=== PATIENT | male | born 1950 | race Caucasian/White ===

== ENCOUNTER → 2017-03-01 | Outpatient (CLI) | payer OTHER ==
[2017-03-01 07:49] LABS: ALT 34 U/L (21-72); AST 18 U/L (17-59); Alkaline Phosphatase 44 U/L (38-126); Anion Gap 9 mmol/L; Blood Urea Nitrogen 16 mg/dL (9-20); Calcium 9.6 mg/dL (8.4-10.2); Carbon Dioxide 28 mmol/L (22-30); Chloride 104 mmol/L (98-107); Glucose 105 mg/dL (74-99); Non-African American GFR(MDRD) >60 (>60 ml/min/1.73 sqM); Potassium 4.3 mmol/L (3.5-5.1); Sodium 141 mmol/L (137-145); Total Bilirubin 0.9 mg/dL (0.2-1.3); Total Protein 6.9 g/dL (6.3-8.2)
[2017-03-01 07:51] LABS: Basophils % (A) 1 %; CH 32.6; CHCM 34.1; Eosinophils # (A) 0.4 k/uL (0-0.7); Eosinophils % (A) 8 %; HCT 41.9 % (39.0-53.0); HDW 2.72; HGB 13.7 gm/dL (13.0-17.5); Luc # (Auto) 0.17; Luc % (Auto) 4; Lymphocytes % (A) 21 %; MCH 31.5 pg (25.0-35.0); MCHC 32.8 g/dL (31.0-37.0); MCV 96.1 fL (80.0-100.0); Mean Platelet Volume 7.6; Monocytes # (A) 0.5 k/uL (0-1.0); Monocytes % (A) 11 %; Neutrophils # (A) 2.6 k/uL (1.3-7.7); Neutrophils % (A) 56 %; RBC 4.36 m/uL (4.30-5.90); RDW 12.8 % (11.5-15.5); WBC 4.7 k/uL (3.8-10.6)
[2017-03-01 09:44] LABS: Hemoglobin A1C 6.4 % (4.2-6.1)
== END | disposition home or self-care (01) ==
LOC: LABWHC1 07:01
PROVIDERS: ATTEND Internal Medicine
DX: E78.2 Mixed hyperlipidemia (principal); E11.9 Type 2 diabetes mellitus without complications; J45.20 Mild intermittent asthma, uncomplicated; K21.9 Gastro-esophageal reflux disease without esophagitis; N40.0 Benign prostatic hyperplasia without lower urinary tract symptoms; T78.49XD Other allergy, subsequent encounter
CPT/HCPCS: 36415; 80053; 83036; 84439; 84443; 85025

== ENCOUNTER → 2017-09-07 | Outpatient (CLI) | payer OTHER | END | disposition home or self-care (01) | LOC: LAB 14:10 | PROVIDERS: ATTEND Internal Medicine | DX: E11.9 Type 2 diabetes mellitus without complications (principal) | CPT/HCPCS: 82043; 82570 ==

== ENCOUNTER → 2018-05-03 | Outpatient (CLI) | payer MEDICARE, BC ==
[2018-05-03 11:16] LABS: INR 0.9 (<1.2); Prothrombin Time 10.2 sec (9.0-12.0)
[2018-05-03 11:26] LABS: HCT 43.2 % (39.0-53.0); HGB 13.8 gm/dL (13.0-17.5); MCH 30.6 pg (25.0-35.0); MCV 95.8 fL (80.0-100.0); Mean Platelet Volume 7.9; Platelet Count 271 k/uL (150-450); RBC 4.51 m/uL (4.30-5.90); WBC 6.6 k/uL (3.8-10.6)
[2018-05-03 11:53] LABS: Lymphocytes # (M) 0.99 k/uL (1.0-4.8); Monocytes # (M) 1.52 k/uL (0-1.0); Neutrophils # (M) 4.09 k/uL (1.3-7.7); Neutrophils % (M) 62 %; Nucleated Red Blood Cells 0 /100 WBC (0-0); Total Cells Counted 100
[2018-05-03 13:10] LABS: Erythrocyte Sedimentation Rate 8 mm/hr (0-15)
[2018-05-03 13:24] LABS: Appearance,Urine Cloudy (Clear); Bilirubin,Urine 3+ (Negative); Blood,Urine Negative (Negative); Calcium Oxalate Crystals,Urine Rare /hpf; Cellular Casts,Urine 2 /lpf (0); Color,Urine Dark Brown; Glucose,Urine (UA) Negative (Negative); Hyaline Casts,Urine 2 /lpf (0-2); Ketones,Urine Negative (Negative); Leukocyte Esterase,Urine Negative (Negative); Mucus,Urine Many /hpf; Nitrite,Urine Negative (Negative); PH, Urine 5.5 (5.0-8.0); Protein,Urine 1+ (Negative); Specific Gravity,Urine 1.022 (1.001-1.035); WBC,Urine 4 /hpf (0-5)
[2018-05-03 15:42] LABS: Iron Saturation 30.81 (15.00-50.00)
[2018-05-03 16:08] LABS: Albumin 3.7 g/dL (3.80-4.90); Albumin/Globulin Ratio 1.61 (1.20-2.10); Anion Gap 10.6 mmol/L (4.00-12.00); Calcium 9.2 mg/dL (8.7-10.3); Carbon Dioxide 24.4 mmol/L (21.6-31.8); Globulin 2.3 g/dL (1.6-3.3); Potassium 4.3 mmol/L (3.5-5.5)
[2018-05-03 16:24] LABS: Hepatitis A Antibody IgM Non-Reactive (Non-Reactive); Hepatitis B Core IgM Non-Reactive (Non-Reactive)
== END | disposition home or self-care (01) ==
LOC: LABWHC1 10:15
PROVIDERS: ATTEND Internal Medicine
DX: R17 Unspecified jaundice (principal)
CPT/HCPCS: 36415; 80053; 80074; 81001; 82164; 82728; 83540; 83550; 83690; 85025; 85610; 85652

== ENCOUNTER → 2022-05-23 | Outpatient (CLI) | payer MEDICARE, BC ==
[2022-05-23 14:53] LABS: Basophils # (A) 0.05 X 10*3/uL (0.00-0.10); Basophils % (A) 0.7 %; Eosinophils # (A) 0.37 X 10*3/uL (0.04-0.35); Eosinophils % (A) 5.2 %; HCT 36.7 % (39.6-50.0); HGB 12.2 g/dL (13.0-17.0); Immature Grans, Automated 0.3 %; Lymphocytes # (A) 0.81 X 10*3/uL (0.90-5.00); Lymphocytes % (A) 11.5 %; MCH 32.3 pg (27.0-32.0); MCHC 33.2 g/dL (32.0-37.0); MCV 97.1 fL (80.0-97.0); Mean Platelet Volume 11.5 fL (9.5-12.2); Monocytes # (A) 0.86 X 10*3/uL (0.20-1.00); Monocytes % (A) 12.2 %; NRBC Per 100 WBC 0 /100 WBCS (0.0-0.0); Neutrophils # (A) 4.95 X 10*3/uL (1.80-7.70); Neutrophils % (A) 70.1 %; Platelet Count 268 X 10*3/uL (140-440); RBC 3.78 X 10*6/uL (4.40-5.60); RDW 12.7 % (11.5-14.5); WBC 7.06 X 10*3/uL (4.50-10.00)
[2022-05-23 15:06] LABS: ALT 18 U/L (10-49); AST 15 U/L (14-35); Albumin 4.5 g/dL (3.8-4.9); Albumin/Globulin Ratio 2.43 (1.60-3.17); Alkaline Phosphatase 46 U/L (41-126); BUN/Creat Ratio 18.21 Ratio (12.00-20.00); Blood Urea Nitrogen 17.1 mg/dL (9.0-27.0); Calcium 9.8 mg/dL (8.7-10.3); Chloride 104 mmol/L (96-109); Chol/HDL Ratio 2.66 Ratio; Globulin 1.9 g/dL (1.6-3.3); Glucose 142 mg/dL (70-110); Non-African American GFR(CKD) 81.9 (60.0-200.0); Potassium 4.4 mmol/L (3.5-5.5); Sodium 141 mmol/L (135-145); Total Protein 6.3 g/dL (6.2-8.2); VLDL Calculation 11.98 mg/dL (5.00-40.00)
== END | disposition home or self-care (01) ==
LOC: LABWHC1 10:04
PROVIDERS: ATTEND Internal Medicine
DX: Z12.5 Encounter for screening for malignant neoplasm of prostate (principal); E78.5 Hyperlipidemia, unspecified; I10 Essential (primary) hypertension; E11.9 Type 2 diabetes mellitus without complications
CPT/HCPCS: 36415; 80053; 80061; 83036; 84153; 84439; 84443; 85025

== ENCOUNTER → 2024-09-17 | Outpatient (CLI) | payer MEDICARE, BC ==
[2024-09-17 15:53] LABS: ALT 20 U/L (10-49); AST 20 U/L (14-35); Albumin 4.5 g/dL (3.8-4.9); Albumin/Globulin Ratio 2.25 Ratio (1.60-3.17); Alkaline Phosphatase 41 U/L (41-126); Blood Urea Nitrogen 20.3 mg/dL (9.0-27.0); Calcium 10.1 mg/dL (8.7-10.3); Carbon Dioxide 24.4 mmol/L (21.6-31.8); Chloride 100 mmol/L (96-109); Chol/HDL Ratio 2.72 Ratio; Glucose 121 mg/dL (70-110); LDL Cholesterol,Calculated 81.5 mg/dL (0.0-131.0); Potassium 4.6 mmol/L (3.5-5.5); Prostate Specific Antigen 0.68 ng/mL (0.000-6.500); Sodium 137 mmol/L (135-145); Total Protein 6.5 g/dL (6.2-8.2); VLDL Calculation 14.04 mg/dL (5.00-40.00)
[2024-09-17 15:56] LABS: Basophils # (A) 0.06 X 10*3/uL (0.00-0.10); Basophils % (A) 1.3 %; Eosinophils # (A) 0.19 X 10*3/uL (0.04-0.35); Eosinophils % (A) 4.2 %; HCT 37.9 % (39.6-50.0); HGB 12.4 g/dL (13.0-17.0); Lymphocytes # (A) 0.93 X 10*3/uL (0.90-5.00); Lymphocytes % (A) 20.6 %; MCHC 32.7 g/dL (32.0-37.0); MCV 97.9 FL (80.0-97.0); Mean Platelet Volume 11.2 FL (9.5-12.2); Monocytes # (A) 0.73 X 10*3/uL (0.20-1.00); Monocytes % (A) 16.2 %; NRBC Per 100 WBC 0 X 10*3/uL (0.00-0.01); Neutrophils # (A) 2.58 X 10*3/uL (1.80-7.70); Neutrophils % (A) 57.3 %; Platelet Count 281 X 10*3/uL (140-440); RBC 3.87 X 10*6/uL (4.40-5.60); RDW 12.9 % (11.5-14.5); WBC 4.51 X 10*3/uL (4.50-10.00)
== END | disposition home or self-care (01) ==
LOC: LABWHC1 07:50
PROVIDERS: ATTEND Internal Medicine
DX: E11.9 Type 2 diabetes mellitus without complications (principal); E78.5 Hyperlipidemia, unspecified
CPT/HCPCS: 36415; 80053; 80061; 83036; 84153; 84439; 84443; 85025